=== PATIENT | male | born 1990 | race Hispanic/Latino ===

== ENCOUNTER 2018-01-30 18:18 | Inpatient (IN) | payer OTHER ==
[~2018-01-30 18:18] MED LIST: ISOVUE-370 76%-LOCM 1 ML ONE
[2018-01-30] MEDS ORDERED: methylPREDNISolone Sod Succ/PF 125 MG/2 ML VIAL ONE (18:48)
[2018-01-30 19:22] LABS: #Eosinphils 0.2 thou/uL (0.0-0.7); #Lymphocytes 4.2 thou/uL (1.20-3.40); #Monocytes 1.5 thou/uL (0.11-0.59); %Basophils 0.1 % (0.0-1.0); %Eosinophils 1.7 % (0.0-10.0); %Lymphocytes 30.4 % (21.0-51.0); %Monocytes 10.7 % (0.0-10.0); %Neutrophils 57.2 % (42.0-75.0); Hemoglobin 13.3 g/dL (14.0-18.0); Mean Corpuscular HGB CONC 34.1 g/dL (32.0-36.0); Mean Corpuscular Hemoglobin 29.4 pg (27.0-31.0); Mean Corpuscular Volume 86.1 fl (80.0-94.0); Mean Platelet Volume 10.8 fL (7.4-10.4); Platelet Count 150 thou/uL (130-400); RBC Distribution Width 14.1 % (11.5-14.5); Red Blood Cell (RBC) Count 4.51 mill/uL (4.70-6.10); White Blood Cell (WBC) Count 13.9 thou/uL (4.8-10.8)
[2018-01-30 19:25] LABS: CKMB 0.5 ng/mL (0-6.6); Troponin I Less than 0.010 ng/mL (< 0.028)
[2018-01-30 19:49] LABS: ALT (SGPT) 89 U/L (8-55); AST (SGOT) 63 U/L (5-34); Albumin 4.2 g/dL (3.5-5.0); Alkaline Phosphatase 143 U/L (40-150); Anion Gap 20 mmol/L (10-20); BUN (Urea Nitrogen) 32 mg/dL (8.9-20.6); Bilirubin, Total 0.4 mg/dL (0.2-1.2); CK (CPK) 35 U/L (30-200); Calc. Creatinine Clearance 0 mL/min (70-130); Calcium 10.1 mg/dL (7.8-10.44); Carbon Dioxide 20 mmol/L (22-29); Chloride 95 mmol/L (98-107); Estimated GFR-MDRD 51; Globulin 3.9 g/dL (2.4-3.5); Glucose 493 mg/dL (70-105); Potassium 4.5 mmol/L (3.5-5.1); Protein, Total 8.1 g/dL (6.0-8.3); Sodium 130 mmol/L (136-145)
--- NOTE | 2018-01-30 19:52 | RAD ---
SINGLE VIEW OF THE CHEST: 01/30/18 COMPARISON: 06/07/16 HISTORY: Dyspnea with shortness of breath and pneumonia. FINDINGS: Single view of the chest shows a normal sized cardiomediastinal silhouette. There is no evidence of c onsolidation, mass, or pleural effusion. The bones are unremarkable. IMPRESSION: No evidence of acute cardiopulmonary disease. POS: [facility]
--- NOTE | 2018-01-30 22:53 | CT ---
CTA OF THE CHEST WITH CONTRAST 01/30/18 COMPARISON: None. HISTORY: Shortness of breath for one week. TECHNIQUE: Multiple contiguous axial images were obtained in a CTA of the chest with contrast per pulmonary embo lism protocol. 3D oblique MIP reformats and direct coronal reformats were performed. FINDINGS: Evaluation of the pulmonary arteries is limited secondary to poor timing of the contrast bolus. No ob vious large filling defect is seen within the main pulmonary arteries. The heart is normal in size. N o hilar or mediastinal lymphadenopathy are seen. No pneumothorax or pleural effusion are seen. No focal infiltrates are seen in the lungs. No suspicio us pulmonary nodule is present. The osseous structures and visualized abdominal wall soft tissues are unremarkable. There is fatty in filtration of the liver. IMPRESSION: 1. No evidence of pulmonary thromboembolism. 2. Fatty liver. POS: [facility]
[2018-01-30] MEDS ORDERED: Insulin Regular 300 UNITS/3 ML VIAL ONE (23:16)
[2018-01-31] MEDS ORDERED: Insulin Regular 300 UNITS/3 ML VIAL ONE (01:53)
[2018-01-31] MEDS ORDERED: Ondansetron ODT 4 MG TAB SL PRN (03:37)
[2018-01-31] MEDS ORDERED: Ondansetron HCl/PF 4 MG/2 ML Vial IVP PRN ×2 (03:37→06:17)
[2018-01-31] MEDS ORDERED: Acetaminophen 325 MG TAB PO PRN (03:37)
[2018-01-31 04:19] VITALS: BMI 61.1
[2018-01-31 04:34] LABS: Anion Gap 16 mmol/L (10-20); BUN (Urea Nitrogen) 34 mg/dL (8.9-20.6); Calc. Creatinine Clearance 200 mL/min (70-130); Calcium 9.1 mg/dL (7.8-10.44); Carbon Dioxide 22 mmol/L (22-29); Chloride 98 mmol/L (98-107); Estimated GFR-MDRD 55; Potassium 4.6 mmol/L (3.5-5.1); Sodium 131 mmol/L (136-145)
[2018-01-31 04:41] LABS: Glucose 661 mg/dL (70-105)
[2018-01-31] MEDS ORDERED: HumaLOG 300 UNITS/3 ML VIAL SC SCH (05:15)
[2018-01-31] MEDS ORDERED: Dextrose 50% Abboject 50 ML SYRINGE SLOW IVP PRN (06:17)
[2018-01-31] MEDS ORDERED: Dextrose 5% in Water 1,000 ML IV PRN (06:17)
[2018-01-31] MEDS ORDERED: Acetaminophen 650 MG Suppository PR PRN (06:17)
[2018-01-31] MEDS ORDERED: Bisacodyl 5 MG TAB PO PRN (06:17)
--- NOTE | 2018-01-31 06:46 | HP ---
PRIMARY CARE PROVIDER: None. CHIEF COMPLAINT: Shortness of breath. HISTORY OF PRESENT ILLNESS: Mr. Underwood is a pleasant 27-year-old gentleman who was seen at [facility] on 01/31/2018. He reports that he has been feeling short of breath over the last 1-2 weeks. He denies any cough or sputum. He denies any nausea or vomiting. He denies any chest pain at this time, although he appear s to have told the emergency room physician that he had some chest pain. He reports that he has been unable to sleep. He also describes wheezing. In the emergency room, he received Solu-Medrol. He was found to have high blood glucose levels. The refore, he was referred for admission to control his hyperglycemia. While on the observation floor, his oxygen saturations dropped to 84% on room air. Therefore, he is being admitted as an inpatient t [facility]. REVIEW OF SYSTEMS: All other systems reviewed and found to be negative. PAST MEDICAL HISTORY: Significant for hypothyroidism, morbid obesity, asthma, mild mental retardatio n and hypertension. PAST SURGICAL HISTORY: Appendectomy. SOCIAL HISTORY: The patient drinks alcohol occasionally. He smokes 1-2 packs of cigarettes a day. He denies recreational drug use. FAMILY HISTORY: He reports cardiac disease in uncles and aunts. ALLERGIES: MUSCLE RELAXANT drug. CURRENT MEDICATIONS: Albuterol inhalations as needed, Tylenol #3 p.r.n., amlodipine 10 mg daily, frances apentin 100 mg 3 times a day, Humalog insulin 15 units 3 times a day, levothyroxine 125 mcg daily, me tformin 1000 mg 2 times a day, metoprolol tartrate 25 mg 2 times a day, and Lantus insulin 40 units s ubcutaneously daily. PHYSICAL EXAMINATION: GENERAL: On examination, Mr. Underwood is awake and alert, not in acute distress. He is morbidly obese , with BMI of greater than 61. VITAL SIGNS: Blood pressure is 150/78, pulse is 104, he is breathing at rate of 24 and saturating 84 % on room air and 92% on 3 liters of oxygen by nasal cannula. He is afebrile. EYES: No scleral icterus. No conjunctival pallor. ENT: Moist mucosal membranes, no oropharyngeal erythema or exudates. NECK: Supple, nontender, normal range of movement. Trachea is midline. RESPIRATORY: Accessory muscles of breathing are not active. Chest wall movements are symmetric bila terally. He has occasional expiratory lung wheeze. CARDIOVASCULAR: S1 and S2 are heard, regular and tachycardic. Peripheral pulses palpable. No peric ardial rub, no carotid bruit. ABDOMEN: Soft, distended, nontender. Bowel sounds are heard. NEUROLOGIC: Cranial nerves II-XII intact. Deep tendon reflexes are 2+. MUSCULOSKELETAL: Power is 5/5 in all 4 extremities. SKIN: Multiple tattoos present. LYMPHATIC: No cervical lymphadenopathy. PSYCHIATRIC: Normal mood, normal affect, patient is oriented to person and place, not to time. IMAGING DATA AND LABORATORY DATA: Mr. Underwood's labs and investigations were reviewed. I reviewed hi s electrocardiogram, which shows sinus tachycardia, no ST changes to suggest an acute coronary syndro me. I also reviewed his chest x-ray, which does not show any pulmonary infiltrates. He also had CT angiogram of the chest, which did not show any evidence of pulmonary thromboembolism. He has fatty l iver. He has leukocytosis with 13,900 white cells, of which 57% are neutrophils, normocytic anemia with hem oglobin 13.3, normal platelet count, decreased sodium of 131, normal potassium, normal anion gap, nor mal bicarbonate, elevated blood urea nitrogen of 34, elevated creatinine of 1.52 and elevated blood s ugars of 661. AST is elevated at 63, ALT is elevated at 89. Total bilirubin and alkaline phosphatas e are normal. Beta hydroxybutyrate level is normal. ASSESSMENT AND PLAN: Mr. Underwood is a pleasant 27-year-old gentleman who was seen at [facility] on 01/31/2018. His problem list includes: 1. Acute hypoxic respiratory failure: Mr. Underwood is being admitted to the hospital for acute hypoxi c respiratory failure, most likely secondary to asthma exacerbation, although he could very well have a hypercapnic component secondary to sleep disorder breathing. For now, I will continue him on ster oids and bronchodilators as needed. 2. Uncontrolled hyperglycemia: We will start him on Levemir insulin and home doses of insulins as w ell as an aggressive insulin sliding scale. 3. Hypertension: Monitor vital signs, titrate antihypertensives as needed. 4. Hypothyroidism: Continue Synthroid. LEVEL OF RISK: High. LEVEL OF COMPLEXITY: High.
[2018-01-31 07:56] LABS: Bilirubin Negative (Negative); Blood, Urine Negative (Negative); Clarity CLEAR (Clear); Glucose, Urine (Dipstick) >=1000 mg/dL (Negative); Leukocyte Negative (Negative); Nitrite Negative (Negative); Protein, Urine (Dipstick) Negative (Neg-Trace); Specific Gravity, Urine 1.024 (1.002-1.036); Urobilinogen 0.2 mg/dL (0.2-1.0)
[2018-01-31 07:58] LABS: Bacteria/HPF None Seen HPF (None Seen); Hyaline Casts/LPF 0-3 HYALINE CAST LPF (0-3 Hyaline); RBC/HPF None Seen HPF (0-3); Squamous Epithelial 0-3 HPF (0-3); WBC/HPF None Seen HPF (0-3)
[2018-01-31] MEDS: HumaLOG 300 UNITS/3 ML VIAL SC SCH ×3 (09:22→17:46)
[2018-01-31] MEDS: Enoxaparin Sodium 40 MG/0.4 ML SYRINGE SC SCH (09:23)
[2018-01-31] MEDS: Insulin Glargine 40 UNITS in Pre-Filled Syringe 1 EACH SC SCH (09:23)
[2018-01-31] MEDS: predniSONE 50 MG TAB PO SCH (09:23)
[2018-01-31] MEDS: metFORMIN 500 MG TAB PO SCH ×2 (09:24→20:16)
[2018-01-31] MEDS: Amlodipine 10 MG TAB PO SCH (09:24)
[2018-01-31] MEDS: Levothyroxine Sodium 125 MCG TAB PO SCH (09:25)
[2018-01-31] MEDS: Lisinopril 10 MG TAB PO SCH (09:25)
[2018-01-31] MEDS: Metoprolol Tartrate 25 MG TAB PO SCH ×2 (09:25→20:16)
[2018-01-31] MEDS: Gabapentin 100 MG CAP PO SCH ×3 (09:25→20:16)
[2018-01-31] MEDS: Sodium Chloride 0.9% 1,000 ML IV SCH ×2 (10:33→14:56)
[2018-01-31] MEDS: Nicotine 21 MG PATCH TD SCH ×2 (10:34→12:28)
[2018-01-31] MEDS: Acetaminophen 325 MG TAB PO PRN ×2 (15:11→20:19)
[2018-01-31] MEDS: Lorazepam 1 MG TAB PO PRN (17:46)
[2018-01-31] MEDS: Insulin Regular 300 UNITS/3 ML VIAL SC PRN ×2 (17:48→21:12)
--- NOTE | 2018-01-31 18:13 | PDOC.EVN ---
Event Note - Event Note Event Note: Up and down day with the patient. He has refused interventions intermittently and had become agitated and angry at times. This evening he is behaving more pleasantly. He had refused an IV initially. We did finally get one in, but then he pulled it out when he got upset. Says his breathing is still not good, but he looks very comfortable. No significant wheezing heard, but compromised by habitus. Has not received any nebs today. Will change them to scheduled. Blood sugars have improved through the day.
[2018-01-31] MEDS ORDERED: Insulin Regular 300 UNITS/3 ML VIAL SC PRN (20:33)
[2018-01-31] MEDS ORDERED: Lorazepam 1 MG TAB PO SCH (22:15)
[2018-02-01] MEDS: Levothyroxine Sodium 125 MCG TAB PO SCH (05:10)
[2018-02-01] MEDS: Acetaminophen 325 MG TAB PO PRN ×2 (05:11→08:55)
[2018-02-01] MEDS: Lorazepam 1 MG TAB PO PRN (05:12)
[2018-02-01 05:33] LABS: Anion Gap 14 mmol/L (10-20); BUN (Urea Nitrogen) 27 mg/dL (8.9-20.6); Calc. Creatinine Clearance 286 mL/min (70-130); Calcium 9.5 mg/dL (7.8-10.44); Carbon Dioxide 27 mmol/L (22-29); Chloride 96 mmol/L (98-107); Estimated GFR-MDRD 84; Glucose 307 mg/dL (70-105); Potassium 4.1 mmol/L (3.5-5.1); Sodium 133 mmol/L (136-145)
[2018-02-01 05:43] LABS: #Eosinphils 0.2 thou/uL (0.0-0.7); #Lymphocytes 4.6 thou/uL (1.20-3.40); #Monocytes 1.3 thou/uL (0.11-0.59); %Eosinophils 1.1 % (0.0-10.0); %Lymphocytes 30.5 % (21.0-51.0); %Monocytes 8.8 % (0.0-10.0); %Neutrophils 59.6 % (42.0-75.0); Hemoglobin 12.9 g/dL (14.0-18.0); Mean Corpuscular HGB CONC 33.6 g/dL (32.0-36.0); Mean Corpuscular Hemoglobin 29.2 pg (27.0-31.0); Mean Corpuscular Volume 86.9 fl (80.0-94.0); Mean Platelet Volume 10.9 fL (7.4-10.4); Platelet Count 135 thou/uL (130-400); RBC Distribution Width 14.1 % (11.5-14.5); Red Blood Cell (RBC) Count 4.44 mill/uL (4.70-6.10); White Blood Cell (WBC) Count 15.2 thou/uL (4.8-10.8)
[2018-02-01 07:54] VITALS: BP 171/85; TEMP 97.7
[2018-02-01] MEDS: Gabapentin 100 MG CAP PO SCH ×2 (08:55→16:28)
[2018-02-01] MEDS: Metoprolol Tartrate 25 MG TAB PO SCH (08:55)
[2018-02-01] MEDS: Lisinopril 10 MG TAB PO SCH (08:55)
[2018-02-01] MEDS: predniSONE 50 MG TAB PO SCH (08:55)
[2018-02-01] MEDS: Amlodipine 10 MG TAB PO SCH (08:55)
[2018-02-01] MEDS: metFORMIN 500 MG TAB PO SCH (08:55)
[2018-02-01] MEDS: Insulin Glargine 40 UNITS in Pre-Filled Syringe 1 EACH SC SCH (08:56)
[2018-02-01] MEDS: HumaLOG 300 UNITS/3 ML VIAL SC SCH ×2 (08:56→13:17)
[2018-02-01] MEDS: Insulin Regular 300 UNITS/3 ML VIAL SC PRN ×2 (08:57→13:16)
[2018-02-01] MEDS ORDERED: Prevnar 13-Val Conj/PF 0.5 ML SYRINGE IM ONE (09:00)
[2018-02-01] MEDS: Enoxaparin Sodium 40 MG/0.4 ML SYRINGE SC SCH (09:13)
--- NOTE | 2018-02-01 09:54 | PDOC.PN ---
- Subjective Encounter Start Date: 02/01/18 Encounter Start Time: 09:50 The patient reports his breathing is "terrible...I'm trying to quit smoking." He says he has gone downstairs twice to smoke since he has been here. He requests something for pain at discharge. He also says he had no place to go and that he is essentially homeless at this point. He requests oxygen and a prescription for a new neb machine. He orders guest trays and becomes angry with nursing when they try to intervene based on his terrible blood sugars and dietary restriction. He has intermittently refused treatment and has acted out to the point security has been involved. He removes his oxygen frequently. - Objective Vital Signs & Weight: Vital Signs (12 hours) Temp Pulse Resp BP Pulse Ox 02/01/18 07:45 97.7 F 90 18 171/85 H 92 L 02/01/18 06:44 80 16 95 02/01/18 04:00 98 F 88 22 H 135/74 94 L 02/01/18 01:54 98 24 H Weight Weight 425 lb 5 oz I&O: 01/31/18 02/01/18 02/02/18 06:59 06:59 06:59 Intake Total 5000 Output Total 5075 Balance -75 Result Diagrams: 02/01/18 04:40 02/01/18 04:40 Additional Labs: Accuchecks 02/01/18 02/01/18 01/31/18 06:00 02:19 20:22 POC Glucose 291 H 352 H Greater than 550 H* 01/31/18 01/31/18 17:27 12:34 POC Glucose 443 H 358 H Phys Exam - Physical Examination Constitutional: NAD Speaks in full sentences comfortably. HEENT: PERRLA, moist MMs, oral pharynx no lesions Neck: no JVD Some wheezing at the left base. Compromised exam due to obesity. Cardiovascular: RRR, no significant murmur Gastrointestinal: soft, non-tender, no distention Musculoskeletal: no edema Neurological: non-focal Deviation from normal: Present affect is basically normal. Labile at times. Dx/Plan (1) Acute respiratory failure with hypoxia Code(s): J96.01 - ACUTE RESPIRATORY FAILURE WITH HYPOXIA Status: Acute Plan: He is still hypoxic on room air, but looks extremely comfortable with that. Suspect he has a major component of hypoventilation of obesity. Continue oxygen and nebs. May need outpatient oxygen. (2) Asthma attack Code(s): J45.901 - UNSPECIFIED ASTHMA WITH (ACUTE) EXACERBATION Status: Acute Plan: Continue the nebs and oxygen. Stopping steroids secondary to severe hyperglycemia. Still smoking. May need better controller medication in the long-term, but he needs follow up care. (3) Diabetes Code(s): E11.9 - TYPE 2 DIABETES MELLITUS WITHOUT COMPLICATIONS Status: Acute Qualifiers: Diabetes mellitus type: type 2 Diabetes mellitus correction insulin use: with superintendent [employer] use Plan: His blood sugars are extremely high at times. Better with the SSI. He is non- compliant with diet. Stopping steroids. Continue SSI. (4) Hypertension Code(s): I10 - ESSENTIAL (PRIMARY) HYPERTENSION Status: Acute (5) Morbid obesity with BMI of 60.0-69.9, adult Code(s): E66.01 - MORBID (SEVERE) OBESITY DUE TO EXCESS CALORIES; Z68.44 - BODY MASS INDEX (BMI) 60.0-69.9, ADULT Status: Acute Plan: Life threatening obesity. Non-compliance with diet. - Plan * Stopping steroids. * Continue SSI. * Case Management for assisting with housing. * May need outpatient oxygen.
[2018-02-01] MEDS: Nicotine 21 MG PATCH TD SCH ×2 (10:16→10:17)
[2018-02-01 10:27] LABS: Actual Bicarbonate (HCO3a) 25.2 mEq/L (22-26); Base Excess (BEa) 0.5 mEq/L (0 (+/-) 2.5); CO2 Tension 40.9 mmHg (35.0-45.0); Hematocrit-ABG 41.7 % (42.0-52.0); O2 Tension (PaO2) 85.8 mmHg (80.0-100.0); pH, Arterial 7.41 (7.35-7.45)
[2018-02-01 10:28] LABS: ALV-art Gradient 11.965 (0-20); Calcium, Ionized 1.2 mmol/L (1.12-1.30); Puncture Site LRA
--- NOTE | 2018-02-01 11:48 | EKG ---
Test Reason : Blood Pressure : / mmHG Vent. Rate : 105 BPM Atrial Rate : 105 BPM P-R Int : 128 ms QRS Dur : 098 ms QT Int : 338 ms P-R-T Axes : 059 076 026 degrees QTc Int : 446 ms Sinus tachycardia Otherwise normal ECG Confirmed by AUDRA BOB ([id number]), news videotape editor MICHAEL PAULSON ([id number] on 02/01/2018 11:47:19 AM Referred By: Confirmed By:AUDRA BOB
--- NOTE | 2018-02-02 02:49 | DIS ---
DATE OF ADMISSION: 01/31/2018 DATE OF DISCHARGE: 02/01/2018 DISCHARGE DIAGNOSES: 1. Acute hypoxic respiratory failure. 2. Uncontrolled hyperglycemia. 3. Asthma. 4. Hypertension. 5. Hypothyroidism. 6. Morbid obesity. 7. Tobacco abuse. HISTORY: This patient is a 27-year-old male with a body mass index of 60, who continues to smoke in spite of his asthma. The patient presented ultimately via the emergency departments, he was reporting shortness of breath for approximately 2 weeks prior. In the emergency department, the patient was thought to have some asthma exacerbation, was given a dose of Solu-Medrol and was also found to have significantly elevated blood sugars and O2 sat of 84% and therefore was felt to be appropriate for admission for continued treatment of asthma and hyperglycemia. HOSPITAL COURSE: The patient was maintained on nebulizer treatments and prednisone. His blood sugars remained very high and required multiple doses of sliding scale insulin. Unfortunately, the patient was extraordinarily noncompliance. He was ordering 3 guest trays with his meals. He also went outside in the wheelchair to smoke on a couple of different occasions. The patient frequently refused interventions and became belligerence and threatening to nursing staff. Security had to be called on multiple occasions and ultimately the patient started throwing things in his room and was threatening to the point that the police department had to be asked to come and intervene as well. The patient initially reported that he had checked out of his "apartment" but as it turns out, he had been kicked out of the [place]. He was evaluated by case management and discharge planning and the patient had essentially exhausted most of the options available to him to get assistance with housing and now was determined that the patient had adequate resources in order to get himself to a hotel if need be. Ultimately, the patient was trying to get another guest tray, but did not have rodriguez and was asking to use a credit or debit card. He was told that would not be possible in his room that he would have to go downstairs in order to do that and the patient became angry and was throwing pitchers of water in his room. When ultimately confronted, he stated that he would leave this place against medical advice using a number of choice expletives. Subsequently, the patient is discharged against medical advice by his choice. I will give him the prescription for the nebulizer machine. He stated that he had the medication. MTDD
== END 2018-02-01 16:28 | disposition left against medical advice (07) | DRG 189 ==
LOC: ERS 18:18 → OBSVTOIN 01-31 03:23 → 2SW 01-31 03:23 → 2NO 01-31 07:27
PROVIDERS: ADMIT Internal Medicine; ATTEND Internal Medicine
DX: J96.01 Acute respiratory failure with hypoxia (principal); J44.1 Chronic obstructive pulmonary disease with (acute) exacerbation; Z68.44 Body mass index [BMI] 60.0-69.9, adult; F17.210 Nicotine dependence, cigarettes, uncomplicated; I10 Essential (primary) hypertension; E03.9 Hypothyroidism, unspecified; K76.0 Fatty (change of) liver, not elsewhere classified; E66.01 Morbid (severe) obesity due to excess calories; F70 Mild intellectual disabilities; R73.9 Hyperglycemia, unspecified
CPT/HCPCS: 36415; 36416; 71045; 71275; 80048; 80053; 81001; 82010; 82550; 82553; 82805; 84484; 85025; 93005; 94640; 96361; 96372; 96374; A4216; J1650; J1815; J2930; J7620

== ENCOUNTER 2019-01-09 17:44 | Emergency (ER) | payer OTHER ==
[2019-01-09] MEDS ORDERED: Ketorolac Tromethamine 30 MG/ML VIAL ONE (18:30)
[2019-01-09 18:34] LABS: #Basophils 0.1 thou/uL (0.0-0.2); #Eosinphils 0.3 thou/uL (0.0-0.7); #Lymphocytes 2.5 thou/uL (1.20-3.40); #Monocytes 0.7 thou/uL (0.11-0.59); #Neutrophils 5.8 thou/uL (1.40-6.50); %Eosinophils 3.1 % (0.0-10.0); %Lymphocytes 26.5 % (21.0-51.0); %Monocytes 7.1 % (0.0-10.0); %Neutrophils 62.2 % (42.0-75.0); Hemoglobin 10.8 g/dL (14.0-18.0); Mean Corpuscular HGB CONC 33.5 g/dL (32.0-36.0); Mean Corpuscular Hemoglobin 29.8 pg (27.0-31.0); Mean Corpuscular Volume 89.1 fL (78.0-98.0); Red Blood Cell (RBC) Count 3.61 mill/uL (4.70-6.10); White Blood Cell (WBC) Count 9.3 thou/uL (4.8-10.8)
--- NOTE | 2019-01-09 18:37 | RAD ---
XR Chest 1 View Portable History: [Dyspnea] Comparison: Radiograph 2018 Findings: Lungs are clear. No pneumothorax or effusion. Cardiac silhouette and mediastinal contours a re within normal limits. Impression: No acute intrathoracic abnormality.
[2019-01-09 18:53] LABS: Bilirubin Negative (Negative); Blood, Urine Negative (Negative); Clarity CLOUDY (Clear); Glucose, Urine (Dipstick) 250 mg/dL (Negative); Leukocyte Small (Negative); Nitrite Negative (Negative); Protein, Urine (Dipstick) Negative (Neg-Trace); Specific Gravity, Urine 1.017 (1.002-1.036); Urobilinogen 0.2 mg/dL (0.2-1.0)
[2019-01-09 18:56] LABS: Bacteria/HPF None Seen HPF (None Seen); Hyaline Casts/LPF 0-3 HYALINE CAST LPF (0-3 Hyaline); Pathc Cast-AUWi Flag 0.95 (0-2.49)
[2019-01-09 18:59] LABS: Large Platelets SLIGHT; MDiff Complete? YES; Mean Platelet Volume 10.8 fL (7.4-10.4); Platelet Count 104 thou/uL (130-400); Platelet Morphology Comment Appears Decreased
[2019-01-09 19:01] LABS: Yeast-AUWi Flag 80.9 (0-25.0)
[2019-01-09 19:02] LABS: ALT (SGPT) 22 U/L (8-55); AST (SGOT) 15 U/L (5-34); Albumin 3.6 g/dL (3.5-5.0); Alkaline Phosphatase 104 U/L (40-150); Anion Gap 11 mmol/L (10-20); BUN (Urea Nitrogen) 16 mg/dL (8.9-20.6); Bilirubin, Total 0.2 mg/dL (0.2-1.2); Calc. Creatinine Clearance 0 mL/min (70-130); Calcium 8.8 mg/dL (7.8-10.44); Carbon Dioxide 28 mmol/L (22-29); Chloride 101 mmol/L (98-107); Estimated GFR-MDRD 76; Globulin 2.8 g/dL (2.4-3.5); Glucose 304 mg/dL (70-105); Lipase 35 U/L (8-78); Potassium 4.4 mmol/L (3.5-5.1); Protein, Total 6.4 g/dL (6.0-8.3); Sodium 136 mmol/L (136-145)
[2019-01-09 19:13] LABS: RBC/HPF None Seen HPF (0-3)
[2019-01-09 19:14] LABS: Yeast-All Forms None Seen HPF (None Seen)
== END 2019-01-09 20:00 | disposition home or self-care (01) ==
LOC: ERS 17:44
DX: J20.9 Acute bronchitis, unspecified (principal); E03.9 Hypothyroidism, unspecified; J45.909 Unspecified asthma, uncomplicated; I11.0 Hypertensive heart disease with heart failure; I50.9 Heart failure, unspecified; E11.9 Type 2 diabetes mellitus without complications; F17.210 Nicotine dependence, cigarettes, uncomplicated; Z79.891 Long term (current) use of opiate analgesic; Z79.4 Long term (current) use of insulin; Z79.899 Other long term (current) drug therapy
CPT/HCPCS: 36415; 71045; 80053; 81003; 81015; 83690; 84484; 85025; 93005; 94640; 96374; J1885; J7620

== ENCOUNTER 2019-01-23 17:53 | Emergency (ER) | payer OTHER ==
[2019-01-23 18:43] LABS: #Eosinphils 0.2 thou/uL (0.0-0.7); #Lymphocytes 2.5 thou/uL (1.20-3.40); #Monocytes 0.8 thou/uL (0.11-0.59); %Basophils 0.4 % (0.0-1.0); %Eosinophils 2.2 % (0.0-10.0); %Lymphocytes 23.5 % (21.0-51.0); %Monocytes 7.5 % (0.0-10.0); %Neutrophils 66.4 % (42.0-75.0); Mean Corpuscular HGB CONC 33.2 g/dL (32.0-36.0); Mean Corpuscular Hemoglobin 29.7 pg (27.0-31.0); Mean Corpuscular Volume 89.4 fL (78.0-98.0); Mean Platelet Volume 10.8 fL (7.4-10.4); Platelet Count 115 thou/uL (130-400); RBC Distribution Width 14.2 % (11.5-14.5); Red Blood Cell (RBC) Count 3.72 mill/uL (4.70-6.10); White Blood Cell (WBC) Count 10.5 thou/uL (4.8-10.8)
--- NOTE | 2019-01-23 18:52 | RAD ---
RADIOGRAPH CHEST 1 VIEW: DATE: 01/23/2019 TIME: 6:30 PM HISTORY: 20-year-old male with dyspnea and diagnosis of pneumonia. COMPARISON: 01/19/2019 FINDINGS: Image quality is very poor on the current study. There appears to be a small new focal infiltrate at right lower lung zone. No margaret pulmonary edema. IMPRESSION: Very poor image quality. Apparent right lower lung zone infiltrate.
[2019-01-23 19:02] LABS: ALT (SGPT) 20 U/L (8-55); AST (SGOT) 14 U/L (5-34); Acetaminophen Less than 6.0 mcg/mL (10.0-30.0); Albumin 3.7 g/dL (3.5-5.0); Alcohol Less than 10 mg/dL (Less than 10); Alkaline Phosphatase 91 U/L (40-150); Anion Gap 13 mmol/L (10-20); BUN (Urea Nitrogen) 22 mg/dL (8.9-20.6); Bilirubin, Total 0.3 mg/dL (0.2-1.2); CK (CPK) 110 U/L (30-200); Calc. Creatinine Clearance 0 mL/min (70-130); Calcium 9.7 mg/dL (7.8-10.44); Carbon Dioxide 25 mmol/L (22-29); Chloride 107 mmol/L (98-107); Estimated GFR-MDRD 50; Globulin 3.4 g/dL (2.4-3.5); Potassium 4.8 mmol/L (3.5-5.1); Protein, Total 7.1 g/dL (6.0-8.3); Salicylate Less than 8.0 mg/dL (15.0-30.0); Sodium 140 mmol/L (136-145)
[2019-01-23 19:14] LABS: Glucose 57 mg/dL (70-105)
[2019-01-23] MEDS ORDERED: Azithromycin 250 MG TAB ONE ×2 (20:36→20:52)
[2019-01-23 21:40] LABS: Bilirubin Small (Negative); Blood, Urine Negative (Negative); Clarity CLEAR (Clear); Glucose, Urine (Dipstick) Negative (Negative); Leukocyte Trace (Negative); Nitrite Negative (Negative); Protein, Urine (Dipstick) Trace mg/dL (Neg-Trace); Specific Gravity, Urine 1.025 (1.002-1.036); Urobilinogen 0.2 mg/dL (0.2-1.0)
[2019-01-23 21:41] LABS: Bacteria/HPF None Seen HPF (None Seen)
[2019-01-23 21:44] LABS: Pathc Cast-AUWi Flag 7.88 (0-2.49)
[2019-01-23 21:52] LABS: RBC/HPF 0-3 HPF (0-3); Yeast-All Forms None Seen HPF (None Seen)
[2019-01-23 22:11] LABS: Medtox Reader # READER 1; Opiate Screen Detected (NotDetected)
[2019-01-23 22:12] LABS: Amphetamine Not Detected (NotDetected); Barbiturates Screen Not Detected (NotDetected); Benzodiazepine Screen Not Detected (NotDetected); Cocaine Metabolite Screen Not Detected (NotDetected); Medtox Control Line Valid? VALID (VALID); Methadone Not Detected (NotDetected); Methamphetamine Not Detected (NotDetected); Oxycodone Screen Not Detected (NotDetected); Phencyclidine (PCP) Not Detected (NotDetected); THC/Cannabinoid Screen Not Detected (NotDetected); Tricyclic Screen Not Detected (NotDetected)
== END 2019-01-24 01:03 | disposition home or self-care (01) ==
LOC: ERS 17:53
DX: J18.1 Lobar pneumonia, unspecified organism (principal); R45.851 Suicidal ideations; E11.9 Type 2 diabetes mellitus without complications; E78.5 Hyperlipidemia, unspecified; E03.9 Hypothyroidism, unspecified; I11.0 Hypertensive heart disease with heart failure; I50.9 Heart failure, unspecified; J45.909 Unspecified asthma, uncomplicated; F41.9 Anxiety disorder, unspecified; F31.9 Bipolar disorder, unspecified; F20.9 Schizophrenia, unspecified; F17.210 Nicotine dependence, cigarettes, uncomplicated; Z79.899 Other long term (current) drug therapy; Z79.4 Long term (current) use of insulin
CPT/HCPCS: 36415; 36416; 71045; 80053; 80306; 80307; 81001; 82550; 84443; 84484; 85025; 85379; 93005

== ENCOUNTER 2019-02-08 21:15 | Emergency (ER) | payer OTHER, SELFPAY ==
--- NOTE | 2019-02-08 22:38 | RAD ---
RADIOGRAPH CHEST 1 VIEW: DATE: 02/08/2019 HISTORY: 28-year-old male with chest pain". Exhaustion" FINDINGS: The evaluation is limited because of large body habitus. There is no evidence of no airspace densitie s, pulmonary edema, pneumothorax, or cardiomegaly. The lateral costophrenic angles are sharp. IMPRESSION: No acute cardiopulmonary findings.
[2019-02-08 23:00] LABS: Bilirubin Negative (Negative); Blood, Urine Negative (Negative); Clarity CLOUDY (Clear); Glucose, Urine (Dipstick) Negative (Negative); Leukocyte Negative (Negative); Nitrite Negative (Negative); Protein, Urine (Dipstick) Negative (Neg-Trace); Specific Gravity, Urine 1.016 (1.002-1.036); Urobilinogen 0.2 mg/dL (0.2-1.0); pH, Urine 5.5 (5.0-9.0)
[2019-02-08 23:15] LABS: ALT (SGPT) 24 U/L (8-55); AST (SGOT) 21 U/L (5-34); Albumin 3.9 g/dL (3.5-5.0); Alkaline Phosphatase 84 U/L (40-150); Anion Gap 16 mmol/L (10-20); BUN (Urea Nitrogen) 24 mg/dL (8.9-20.6); Bilirubin, Total 0.3 mg/dL (0.2-1.2); Calc. Creatinine Clearance 0 mL/min (70-130); Calcium 9.7 mg/dL (7.8-10.44); Carbon Dioxide 23 mmol/L (22-29); Chloride 104 mmol/L (98-107); Estimated GFR-MDRD 60; Globulin 3.6 g/dL (2.4-3.5); Glucose 136 mg/dL (70-105); Potassium 4.2 mmol/L (3.5-5.1); Protein, Total 7.5 g/dL (6.0-8.3); Sodium 139 mmol/L (136-145)
[2019-02-08 23:17] LABS: #Basophils 0.1 thou/uL (0.0-0.2); #Eosinphils 0.3 thou/uL (0.0-0.7); #Lymphocytes 3.1 thou/uL (1.20-3.40); #Monocytes 0.8 thou/uL (0.11-0.59); #Neutrophils 6.4 thou/uL (1.40-6.50); %Basophils 0.6 % (0.0-1.0); %Eosinophils 2.7 % (0.0-10.0); %Lymphocytes 29.1 % (21.0-51.0); %Monocytes 7.3 % (0.0-10.0); %Neutrophils 60.3 % (42.0-75.0); Hemoglobin 11.4 g/dL (14.0-18.0); Mean Corpuscular Hemoglobin 30.3 pg (27.0-31.0); Mean Corpuscular Volume 89.3 fL (78.0-98.0); Mean Platelet Volume 11.2 fL (7.4-10.4); Platelet Count 108 thou/uL (130-400); RBC Distribution Width 14.3 % (11.5-14.5); Red Blood Cell (RBC) Count 3.77 mill/uL (4.70-6.10); White Blood Cell (WBC) Count 10.6 thou/uL (4.8-10.8)
[2019-02-08 23:18] LABS: Platelet Morphology Comment Appears Decreased
[2019-02-08 23:24] LABS: Acetaminophen Less than 6.0 mcg/mL (10.0-30.0); Alcohol Less than 10 mg/dL (Less than 10); Salicylate Less than 8.0 mg/dL (15.0-30.0)
--- NOTE | 2019-02-08 23:58 | ULT ---
ULTRASOUND DOPPLER DUPLEX VENOUS BILATERAL LOWER EXTREMITIES: DATE: 02/08/2019 HISTORY: Bilateral lower extremity edema in 28-year-old male. TECHNIQUE: Grayscale, color-flow, and spectral analysis, of major veins of bilateral lower extremities. FINDINGS: Because of body habitus, there is limited visualization of the veins, especially in the calves. There is demonstration of blood flow with normal compressibility, of the bilateral common femoral, profunda femoral, greater saphenous, femoral, and popliteal, veins. The posterior tibial veins are no t visualized. IMPRESSION: 1. Limited study. Bilateral posterior tibial veins of distal calves not visualized. 2. No compelling evidence of deep venous thrombosis of bilateral lower extremities.
[2019-02-09] MEDS ORDERED: Acetaminophen 500 MG TAB ONE (00:29)
== END 2019-02-09 01:50 | disposition home or self-care (01) ==
LOC: ERS 21:15
DX: T67.5XXA Heat exhaustion, unspecified, initial encounter (principal); E10.9 Type 1 diabetes mellitus without complications; E78.5 Hyperlipidemia, unspecified; I10 Essential (primary) hypertension; E66.9 Obesity, unspecified; F31.9 Bipolar disorder, unspecified; F41.9 Anxiety disorder, unspecified; F17.210 Nicotine dependence, cigarettes, uncomplicated; Z79.4 Long term (current) use of insulin; Z79.899 Other long term (current) drug therapy; Z79.51 Long term (current) use of inhaled steroids
CPT/HCPCS: 36416; 71045; 80053; 80307; 81003; 83880; 84484; 85025; 85379; 87086; 93005; 93970; 96360

== ENCOUNTER 2019-02-13 10:25 | Emergency (ER) | payer SELFPAY ==
[2019-02-13] MEDS ORDERED: Ondansetron ODT 8 MG TAB ONE (10:46)
[2019-02-13 11:08] LABS: Bilirubin Negative (Negative); Blood, Urine Negative (Negative); Clarity Clear (Clear); Glucose, Urine (Dipstick) Negative (Negative); Leukocyte Negative (Negative); Nitrite Negative (Negative); Protein, Urine (Dipstick) Negative (Neg-Trace); Urobilinogen 0.2 mg/dL (0.2-1.0)
[2019-02-13 11:18] LABS: #Basophils 0.1 thou/uL (0.0-0.2); #Eosinphils 0.2 thou/uL (0.0-0.7); #Lymphocytes 2.4 thou/uL (1.20-3.40); #Monocytes 0.7 thou/uL (0.11-0.59); #Neutrophils 6.5 thou/uL (1.40-6.50); %Basophils 0.7 % (0.0-1.0); %Eosinophils 2.1 % (0.0-10.0); %Lymphocytes 24.3 % (21.0-51.0); %Monocytes 7.4 % (0.0-10.0); %Neutrophils 65.5 % (42.0-75.0); Hemoglobin 12.3 g/dL (14.0-18.0); Mean Corpuscular HGB CONC 33.9 g/dL (32.0-36.0); Mean Corpuscular Hemoglobin 29.8 pg (27.0-31.0); Mean Corpuscular Volume 87.8 fL (78.0-98.0); Mean Platelet Volume 10.9 fL (7.4-10.4); Platelet Count 118 thou/uL (130-400); RBC Distribution Width 14.4 % (11.5-14.5); Red Blood Cell (RBC) Count 4.12 mill/uL (4.70-6.10); White Blood Cell (WBC) Count 9.9 thou/uL (4.8-10.8)
--- NOTE | 2019-02-13 11:25 | RAD ---
LEFT KNEE 4 VIEWS: Date: 02/13/19 HISTORY: Left knee pain. FINDINGS: Degenerative and osteoarthrosis changes, particularly medial compartment. No fracture, dislocation, o r other acute process. IMPRESSION: Mild right knee degenerative changes, particularly of the medial compartment. No fracture or dislocat ion, or other acute process. POS: [facility]
[2019-02-13 11:38] LABS: ALT (SGPT) 21 U/L (8-55); AST (SGOT) 20 U/L (5-34); Albumin 4.3 g/dL (3.5-5.0); Alkaline Phosphatase 83 U/L (40-150); Anion Gap 16 mmol/L (10-20); BUN (Urea Nitrogen) 27 mg/dL (8.9-20.6); Bilirubin, Total 0.4 mg/dL (0.2-1.2); Calc. Creatinine Clearance 0 mL/min (70-130); Carbon Dioxide 22 mmol/L (22-29); Chloride 101 mmol/L (98-107); Estimated GFR-MDRD 61; Globulin 3.8 g/dL (2.4-3.5); Glucose 75 mg/dL (70-105); Lipase 23 U/L (8-78); Potassium 4.7 mmol/L (3.5-5.1); Protein, Total 8.1 g/dL (6.0-8.3); Sodium 134 mmol/L (136-145)
== END 2019-02-13 12:00 | disposition home or self-care (01) ==
LOC: ERS 10:25
DX: S83.92XA Sprain of unspecified site of left knee, initial encounter (principal); R10.9 Unspecified abdominal pain; K21.9 Gastro-esophageal reflux disease without esophagitis; E66.9 Obesity, unspecified; E10.9 Type 1 diabetes mellitus without complications; I10 Essential (primary) hypertension; E78.5 Hyperlipidemia, unspecified; F41.9 Anxiety disorder, unspecified; F31.9 Bipolar disorder, unspecified; F20.9 Schizophrenia, unspecified; F17.210 Nicotine dependence, cigarettes, uncomplicated; W18.42XA Slipping, tripping and stumbling without falling due to stepping into hole or opening, initial encounter; Z79.899 Other long term (current) drug therapy
CPT/HCPCS: 36415; 80053; 81003; 83690; 85025

== ENCOUNTER 2019-02-22 14:49 | Emergency (ER) | payer OTHER | END 2019-02-22 17:08 | disposition home or self-care (01) | LOC: ERS 14:49 | DX: E11.649 Type 2 diabetes mellitus with hypoglycemia without coma (principal); E78.5 Hyperlipidemia, unspecified; I10 Essential (primary) hypertension; E66.9 Obesity, unspecified; F31.9 Bipolar disorder, unspecified; F41.9 Anxiety disorder, unspecified; F20.9 Schizophrenia, unspecified; F17.210 Nicotine dependence, cigarettes, uncomplicated; Z79.899 Other long term (current) drug therapy; Z79.4 Long term (current) use of insulin; Z79.84 Long term (current) use of oral hypoglycemic drugs | CPT/HCPCS: 36416; 99285 ==

== ENCOUNTER 2019-02-28 21:31 | Emergency (ER) | payer OTHER ==
--- NOTE | 2019-02-28 22:02 | RAD ---
Exam: Chest one view: HISTORY: Left-sided chest pain COMPARISON: 02/24/2019. FINDINGS: Heart size is within normal limits. The lungs are clear. No pneumothorax, pleural effusion, pneumonia , or other acute process. There appears to be some right rib deformities possibly related to healed fractures. There is motion artifact in this region which lowers the sensitivity of the study. IMPRESSION: No significant acute intrathoracic disease.
[2019-02-28 22:16] LABS: #Basophils 0.1 thou/uL (0.0-0.2); #Eosinphils 0.2 thou/uL (0.0-0.7); #Lymphocytes 2.8 thou/uL (1.20-3.40); #Monocytes 0.7 thou/uL (0.11-0.59); #Neutrophils 7.3 thou/uL (1.40-6.50); %Basophils 0.8 % (0.0-1.0); %Eosinophils 1.7 % (0.0-10.0); %Lymphocytes 25.2 % (21.0-51.0); %Monocytes 5.9 % (0.0-10.0); %Neutrophils 66.5 % (42.0-75.0); Hemoglobin 11.8 g/dL (14.0-18.0); Mean Corpuscular HGB CONC 33.5 g/dL (32.0-36.0); Mean Corpuscular Hemoglobin 29.8 pg (27.0-31.0); Mean Corpuscular Volume 89.1 fL (78.0-98.0); Mean Platelet Volume 11.6 fL (7.4-10.4); Platelet Count 98 thou/uL (130-400); RBC Distribution Width 13.7 % (11.5-14.5); Red Blood Cell (RBC) Count 3.96 mill/uL (4.70-6.10)
[2019-02-28 22:38] LABS: ALT (SGPT) 17 U/L (8-55); AST (SGOT) 14 U/L (5-34); Albumin 4.2 g/dL (3.5-5.0); Alkaline Phosphatase 89 U/L (40-150); Anion Gap 13 mmol/L (10-20); BUN (Urea Nitrogen) 22 mg/dL (8.9-20.6); Bilirubin, Total 0.4 mg/dL (0.2-1.2); CK (CPK) 87 U/L (30-200); Calc. Creatinine Clearance 0 mL/min (70-130); Calcium 9.5 mg/dL (7.8-10.44); Carbon Dioxide 25 mmol/L (22-29); Chloride 102 mmol/L (98-107); Estimated GFR-MDRD 42; Globulin 3.6 g/dL (2.4-3.5); Glucose 104 mg/dL (70-105); Lipase 32 U/L (8-78); Potassium 4.1 mmol/L (3.5-5.1); Protein, Total 7.8 g/dL (6.0-8.3); Sodium 136 mmol/L (136-145)
== END 2019-03-01 00:17 | disposition home or self-care (01) ==
LOC: ERS 21:31
DX: R07.9 Chest pain, unspecified (principal); L30.4 Erythema intertrigo; E11.9 Type 2 diabetes mellitus without complications; E10.9 Type 1 diabetes mellitus without complications; E78.5 Hyperlipidemia, unspecified; I10 Essential (primary) hypertension; E66.9 Obesity, unspecified; F31.9 Bipolar disorder, unspecified; F41.9 Anxiety disorder, unspecified; F20.9 Schizophrenia, unspecified; F17.210 Nicotine dependence, cigarettes, uncomplicated; Z79.899 Other long term (current) drug therapy; Z79.4 Long term (current) use of insulin; Z79.84 Long term (current) use of oral hypoglycemic drugs
CPT/HCPCS: 71045; 80053; 82550; 83690; 83880; 84484; 85025; 93005; 96360

== ENCOUNTER 2019-03-01 02:47 | Observation (INO) | payer OTHER ==
[2019-03-01] MEDS ORDERED: Nitroglycerin 0.4 MG TAB 1 EACH ONE (07:09)
[2019-03-01] MEDS ORDERED: Ondansetron PF 4 MG/2 ML Vial IVP PRN ×2 (09:25→11:16)
[2019-03-01] MEDS ORDERED: Ondansetron ODT 4 MG TAB SL PRN (09:25)
[2019-03-01] MEDS ORDERED: Acetaminophen 325 MG TAB PO PRN ×2 (09:25→11:16)
[2019-03-01 09:54] VITALS: BMI 78.8
[2019-03-01 10:48] LABS: Troponin I Less than 0.010 ng/mL (< 0.028)
[2019-03-01] MEDS ORDERED: Zolpidem Tartrate 5 MG TAB PO PRN (11:16)
[2019-03-01] MEDS ORDERED: HumaLOG 300 UNITS/3 ML VIAL SC PRN ×2 (11:16)
[2019-03-01] MEDS ORDERED: Bisacodyl 5 MG TAB PO PRN (11:16)
[2019-03-01] MEDS ORDERED: Nitroglycerin 0.4 MG TAB (25 Tab Bottle) PO PRN (11:16)
[2019-03-01] MEDS ORDERED: Sodium Chloride 0.65% Nasal 44 ML BOT EA NARE PRN (11:16)
[2019-03-01] MEDS ORDERED: Senokot S 8.6-50 MG TAB PO PRN (11:16)
[2019-03-01] MEDS ORDERED: Diabetic Tussin 200 MG/10 ML UDCUP PO PRN (11:16)
[2019-03-01] MEDS ORDERED: Loperamide HCl 2 MG CAP PO PRN (11:16)
[2019-03-01] MEDS ORDERED: Dextrose 50% Abboject 50 ML SYRINGE SLOW IVP PRN (11:16)
[2019-03-01] MEDS ORDERED: Loratadine 10 MG TAB PO PRN (11:16)
[2019-03-01] MEDS ORDERED: Artificial Tears 18 DROP/0.9 ML EA EYE PRN (11:16)
[2019-03-01] MEDS ORDERED: Cepastat Lozenges 1 LOZ PO PRN (11:16)
[2019-03-01] MEDS ORDERED: Calcium Carbonate 500 MG ChewTAB PO PRN (11:16)
[2019-03-01] MEDS ORDERED: Ondansetron ODT 4 MG TAB PO PRN (11:16)
[2019-03-01] MEDS ORDERED: Dextrose 5% in Water 1,000 ML IV PRN (11:16)
[2019-03-01] MEDS ORDERED: hydrALAZINE 20 MG/ML VIAL SLOW IVP PRN (11:16)
[2019-03-01] MEDS ORDERED: Bisacodyl 10 MG SUPP PR PRN (11:16)
--- NOTE | 2019-03-01 11:50 | HP ---
PRIMARY CARE PHYSICIAN: KATHERINE Flores. REASON FOR ADMISSION: Chest pain. HISTORY OF PRESENT ILLNESS: A 28-year-old male, who has underlying morbid obesity, who initially went to emergency room for evaluation of chest pain. The patient came to ER yesterday evening around 9:00 p.m. with chest pain. He describes chest pain on the left side, worse with palpation as well as deep breathing. His chest pain is also little bit worse with movement of the chest. He has constant pain without any relief. He describes intensity of pain is about 4/10. He denies any associated nausea, vomiting, or diaphoresis. He denies any shortness of breath. He denies any dizziness or syncope. He denies any lower extremity edema or calf tenderness. This patient came back to emergency room again with similar ongoing chest pain. In the emergency room, he had a routine blood test including troponin, which were negative. He had routine blood tests yesterday which showed creatinine 1.92 and WBC 11.0 and hemoglobin 11.8. He has chronic low platelet count. The patient also has underlying noncompliance with his medication. He denies any constipation, diarrhea, melena, hematochezia, abdominal pain, or epigastric pain. He denies any urinary tract infection symptoms. REVIEW OF SYSTEMS: CONSTITUTIONAL: Negative for weight loss or gain, ability to conduct usual activities. SKIN: Negative for rash, itching. EYES: Negative for double vision, pain. ENT/MOUTH: Negative for nose bleeding, neck stiffness, pain, tenderness. CARDIOVASCULAR: Negative for palpitations, dyspnea on exertion, orthopnea. RESPIRATORY: Negative for shortness of breath, wheezing, cough, hemoptysis, fever or night sweats. GASTROINTESTINAL: Negative for poor appetite, abdominal pain, heartburn, nausea, vomiting, constipation, or diarrhea. GENITOURINARY: Negative for urgency, frequency, dysuria, nocturia. MUSCULOSKELETAL: Negative for pain, swelling. NEUROLOGIC/PSYCHIATRIC: Negative for anxiety, depression. ALLERGY/IMMUNOLOGIC: Negative for skin rash, bleeding tendency. epigastric pain. He denies any urinary tract infection symptoms. Please see my HPI for pertinent positives and negatives. All other review of systems reviewed and negative except as mentioned in HPI. PAST MEDICAL HISTORY: Morbid obesity, diabetes type 2, medication noncompliance, dyslipidemia, hypertension, hypothyroidism, and diabetic neuropathy. PAST SURGICAL HISTORY: Appendicectomy. PAST PSYCHIATRIC HISTORY: Bipolar disorder, schizophrenia, mild mental retardation. SOCIAL HISTORY: The patient denies any alcohol abuse. He denies any other illicit drug abuse. He uses tobacco products. He is also on Chantix for smoking cessation. He lives at home by himself. ALLERGIES: NO KNOWN DRUG ALLERGIES. FAMILY HISTORY: Positive for cardiac disease to his uncle and aunts. CURRENT HOME MEDICATIONS: 1. Amlodipine 10 mg daily. 2. Gabapentin 100 mg three times daily. 3. Humalog 50 units subcu three times daily. 4. Levothyroxine 125 mcg daily. 5. Metformin 1000 mg p.o. b.i.d. 6. Metoprolol 25 mg twice daily. 7. Lantus 40 units subcu daily. 8. Albuterol inhaler as needed. EMERGENCY ROOM COURSE: The patient is given IV fluid yesterday. PHYSICAL EXAMINATION: VITAL SIGNS: On arrival, blood pressure 162/96, pulse 83, respiratory rate 22, temperature 97.3, saturation 95% on room air. Weight 201.4 kg. GENERAL: The patient is currently alert and awake, no obvious acute distress. HEENT: Head; normocephalic, atraumatic. Eyes; pupils round, reactive to light. Extraocular muscle intact. ENT; oropharynx within normal limits. Moist mucous membranes. No oral lesion. No pharyngeal erythema, no exudate. NECK: Supple. No JVD. No thyromegaly. No carotid bruit. No jugular venous distention. LUNGS: Clear to auscultation without any rhonchi or rales. CARDIAC: S1, S2 regular. No murmur. No gallop. No rub. Mild chest wall tenderness noted. CARDIAC: S1, S2. Regular without any murmur. ABDOMEN: Morbid obesity limiting examination. Bowel sounds present. Nontender. Nondistended. No organomegaly. No mass. No suprapubic tenderness. BACK: Unremarkable. No CVA tenderness. EXTREMITIES: Upper extremities; passive movement of all joints is normal. Lower extremity, no edema. Good distal pulsation. SKIN: The patient does have an erythematous blanchable rash to bilateral axilla with numerous satellite lesion. PSYCHIATRIC: Normal affect. SIGNIFICANT LABORATORY DATA: EKG showing normal sinus rhythm, nonspecific ST-T changes. Chest x-ray based on my review, no acute cardiopulmonary process. CBC; WBC 11.0, hemoglobin 11.8, platelets 98. BMP; sodium 136, potassium 4.1, chloride 102, carbon dioxide 25, BUN 22, creatinine 1.92, glucose 104, calcium 9.5. LFT; AST 14, ALT 17, alkaline phosphatase 89, albumin 4.2, lipase 32. BNP 17.5. Troponin negative. ASSESSMENT/PLAN: 1. Chest pain. The patient's chest pain description is atypical, most likely musculoskeletal pain. Given his morbid obesity, we will just order D-dimer. If D-dimer is abnormal, then we will consider doing V/Q scan. This patient does not need any stress test. We will observe him 24 hours while in hospital. We will control his pain with pain medication and monitor on telemetry floor. 2. Diabetes, insulin requiring. The patient will resume his Humalog insulin as well as Lantus insulin while in the hospital as per his home dosage. 3. Hypertension. We will continue lisinopril and metoprolol as per home dosage. 4. Gastroesophageal reflux disease. We will continue Protonix 40 mg p.o. daily. 5. Diabetic neuropathy. We will continue gabapentin as per home dosage. 6. Hypothyroidism. We will continue Synthroid as per home dosage. 7. Morbid obesity. Dietary education given. Weight loss education given. 8. Chronic kidney disease stage 3. We will monitor renal function. 9. Deep venous thrombosis prophylaxis, Lovenox 30 mg subcu daily. 10. Gastrointestinal prophylaxis, Protonix 40 mg p.o. daily. CODE STATUS: The patient is full code. The patient does not have any surrogate decision maker. DISPOSITION PLAN: Based on clinical course, we will consider discharging him home tomorrow. Plan of care discussed with the patient in detail. Job ID: [id number]
[2019-03-01 13:55] LABS: Troponin I Less than 0.010 ng/mL (< 0.028)
[2019-03-01] MEDS: HYDROcodone/Acetaminophen 5/325 mg Tablet PO PRN ×2 (16:23→20:50)
[2019-03-01] MEDS: Nystatin Powder 15 GM BOT TOP SCH (20:45)
[2019-03-01] MEDS: Metoprolol Tartrate 25 MG TAB PO SCH (20:52)
[2019-03-02] MEDS: HYDROcodone/Acetaminophen 5/325 mg Tablet PO PRN (01:56)
[2019-03-02 05:57] LABS: #Basophils 0.1 thou/uL (0.0-0.2); #Eosinphils 0.2 thou/uL (0.0-0.7); #Lymphocytes 2.8 thou/uL (1.20-3.40); #Monocytes 0.8 thou/uL (0.11-0.59); #Neutrophils 5.5 thou/uL (1.40-6.50); %Basophils 0.7 % (0.0-1.0); %Eosinophils 2.2 % (0.0-10.0); %Lymphocytes 29.8 % (21.0-51.0); %Monocytes 8.4 % (0.0-10.0); %Neutrophils 58.9 % (42.0-75.0); Mean Corpuscular HGB CONC 33.3 g/dL (32.0-36.0); Mean Corpuscular Hemoglobin 29.9 pg (27.0-31.0); Mean Corpuscular Volume 89.8 fL (78.0-98.0); Mean Platelet Volume 12.1 fL (7.4-10.4); Platelet Count 94 thou/uL (130-400); RBC Distribution Width 13.9 % (11.5-14.5); Red Blood Cell (RBC) Count 4.02 mill/uL (4.70-6.10); White Blood Cell (WBC) Count 9.3 thou/uL (4.8-10.8)
[2019-03-02 06:12] LABS: ALT (SGPT) 17 U/L (8-55); AST (SGOT) 13 U/L (5-34); Albumin 4.1 g/dL (3.5-5.0); Alkaline Phosphatase 86 U/L (40-150); Anion Gap 14 mmol/L (10-20); BUN (Urea Nitrogen) 24 mg/dL (8.9-20.6); Bilirubin, Total 0.3 mg/dL (0.2-1.2); Calc. Creatinine Clearance 255 mL/min (70-130); Calcium 10.3 mg/dL (7.8-10.44); Carbon Dioxide 26 mmol/L (22-29); Cardiac Risk 3.7 (Less than 4.5); Chloride 101 mmol/L (98-107); Cholesterol 128 mg/dl (< 200 Desired); Estimated GFR-MDRD 71; Globulin 3.7 g/dL (2.4-3.5); Glucose 141 mg/dL (70-105); HDL Cholesterol 35 mg/dL (>60 Neg Risk); LDL Cholesterol, Calculated 61 mg/dL; Protein, Total 7.8 g/dL (6.0-8.3); Sodium 137 mmol/L (136-145); Triglycerides 160 mg/dL (Less than 150)
[2019-03-02] MEDS ORDERED: metFORMIN 500 MG TAB PO SCH (08:00)
[2019-03-02 08:16] VITALS: TEMP 97.8
[2019-03-02] MEDS ORDERED: Lisinopril 10 MG TAB PO SCH (09:00)
[2019-03-02] MEDS ORDERED: Gabapentin 100 MG CAP PO SCH (09:00)
[2019-03-02] MEDS ORDERED: Aspirin 325 mg Enteric Coated Tablet PO SCH (09:00)
[2019-03-02] MEDS ORDERED: Pregabalin 75 MG CAP PO SCH (09:00)
[2019-03-02] MEDS ORDERED: Amlodipine 10 MG TAB PO SCH (09:00)
[2019-03-02] MEDS: Metoprolol Tartrate 25 MG TAB PO SCH (09:36)
[2019-03-02] MEDS: HumaLOG 300 UNITS/3 ML VIAL SC SCH ×2 (09:37→12:40)
[2019-03-02] MEDS: Nystatin Powder 15 GM BOT TOP SCH (09:38)
--- NOTE | 2019-03-02 11:13 | DIS ---
DATE OF ADMISSION: 03/01/2019 DATE OF DISCHARGE: 03/02/2019 PRIMARY CARE PHYSICIAN: Tracy Kay PA-C DISCHARGE DISPOSITION: Home. PRIMARY DISCHARGE DIAGNOSIS: Chest pain due to musculoskeletal etiology. SECONDARY DISCHARGE DIAGNOSES: Chronic thrombocytopenia, morbid obesity with BMI of 80, hypertension, diabetic neuropathy, diabetic nephropathy, chronic kidney disease stage 3, and normocytic normochromic anemia. PRIMARY PROCEDURE/OPERATION: None. RADIOLOGICAL INVESTIGATION: Chest x-ray was normal. SIGNIFICANT LABORATORY DATA: WBC 9.3, hemoglobin 12.0, and platelet 94. D-dimer 0.33. Creatinine 1.22. LDL 61. Sodium 137. DISCHARGE MEDICATION: 1. Amlodipine 10 mg p.o. daily. 2. Gabapentin 100 mg p.o. t.i.d. 3. Humalog insulin 15 units subcu t.i.d. 4. Synthroid 125 mcg p.o. daily. 5. Lisinopril 10 mg daily. 6. Metformin 1000 mg p.o. b.i.d. 7. Metoprolol 25 mg p.o. b.i.d. 8. Omeprazole 20 mg p.o. daily. 9. Lyrica 75 mg p.o. b.i.d. 10. Zocor 20 mg p.o. at bedtime. CONTRAINDICATION: None. CODE STATUS: Full code. INPATIENT PRODUCTION GRAPHIC DESIGNER: None. ALLERGIES: NO KNOWN DRUG ALLERGIES. DISCHARGE PLAN: Posthospital, the patient will follow up with primary care physician in 1 or 2 weeks. HOSPITAL COURSE: This is a 28-year-old male with above-mentioned medical problem, who was admitted by me. Please see my HPI for further details. This patient presented to ongoing chest pain. He required 2 emergency room visits [id number] for his left-sided chest pain, which was related with movement and locally reproducible. Based on his history and examination, his pain was consistent with musculoskeletal etiology. Given his morbid obesity, we did D-dimer to rule out any thromboembolic disorder. His description was not consistent with thromboembolic disorder and his D-dimer is negative. In this way, we have completely excluded cardiac and thromboembolic disorder. During this admission, we had serial cardiac enzymes, that were negative. The patient's pain was controlled with pain medication. This morning, the patient is completely asymptomatic. I have seen and examined at bedside today. PHYSICAL EXAMINATION: VITAL SIGNS: Currently, temperature 97.5, pulse 74, respiratory rate 16, saturation 97% on room air, blood pressure 133/83, and weight 440 pounds. GENERAL: The patient is currently alert, awake, in no obvious acute distress. HEENT: Head, normocephalic and atraumatic. LUNGS: Clear to auscultation without any rhonchi or rales. CARDIAC: S1 and S2 regular. No murmur. No gallop. No rub. ABDOMEN: Soft, morbid obesity limiting examination. Bowel sounds present. NEUROLOGIC: Nonfocal examination. The patient is medically stable for discharge. All review of systems reviewed with him and negative. Job ID: [id number]
[2019-03-02 12:40] VITALS: BP 129/61
[2019-03-02] MEDS ORDERED: Atorvastatin Calcium 10 MG TAB PO SCH (21:00)
[2019-03-03] MEDS ORDERED: Levothyroxine Sodium 125 MCG TAB PO SCH (06:00)
== END 2019-03-02 14:16 | disposition home or self-care (01) ==
LOC: ERS 02:47 → 2SW 09:05
PROVIDERS: ADMIT Internal Medicine; ATTEND Internal Medicine
DX: R07.89 Other chest pain (principal); D69.6 Thrombocytopenia, unspecified; E66.01 Morbid (severe) obesity due to excess calories; I12.9 Hypertensive chronic kidney disease with stage 1 through stage 4 chronic kidney disease, or unspecified chronic kidney disease; E10.22 Type 1 diabetes mellitus with diabetic chronic kidney disease; N18.3 Chronic kidney disease, stage 3 (moderate); E10.40 Type 1 diabetes mellitus with diabetic neuropathy, unspecified; D64.9 Anemia, unspecified; E78.5 Hyperlipidemia, unspecified; K21.9 Gastro-esophageal reflux disease without esophagitis; E03.9 Hypothyroidism, unspecified; F20.9 Schizophrenia, unspecified; F79 Unspecified intellectual disabilities; F17.210 Nicotine dependence, cigarettes, uncomplicated; Z91.14 Patient's other noncompliance with medication regimen; Z68.45 Body mass index [BMI] 70 or greater, adult; Z79.899 Other long term (current) drug therapy; Z79.84 Long term (current) use of oral hypoglycemic drugs
CPT/HCPCS: 36415; 36416; 71045; 80053; 80061; 82550; 83690; 83880; 84484; 85025; 85379; 93005; 96360; G0378

== ENCOUNTER 2019-03-02 17:49 | Emergency (ER) | payer OTHER ==
[2019-03-02] MEDS ORDERED: Mag-Al 1200 mg/1200 mg/30 ML UDCUP ONE (18:32)
[2019-03-02] MEDS ORDERED: Lidocaine Viscous Sol 2% 15 ml UD Cup ONE (18:32)
== END 2019-03-02 19:00 | disposition home or self-care (01) ==
LOC: ERS 17:49
DX: R07.9 Chest pain, unspecified (principal); F41.9 Anxiety disorder, unspecified; F31.9 Bipolar disorder, unspecified; F20.9 Schizophrenia, unspecified; F17.210 Nicotine dependence, cigarettes, uncomplicated; Z79.899 Other long term (current) drug therapy; Z79.84 Long term (current) use of oral hypoglycemic drugs
CPT/HCPCS: 93005

== ENCOUNTER 2019-03-03 08:51 | Emergency (ER) | payer OTHER ==
[2019-03-03] MEDS ORDERED: Ondansetron PF 4 MG/2 ML Vial ONE (09:28)
--- NOTE | 2019-03-03 09:35 | RAD ---
EXAM: Chest PA and lateral: HISTORY: Pleuritic chest pain COMPARISON: 02/28/2019 FINDINGS: Poor inspiration. Exam is limited technically by very large body habitus. Heart size:Within normal limits. Lungs:Clear of acute process. No confluent pneumonia, overt edema, pleural effusion, or other acute process. IMPRESSION: No significant acute intrathoracic disease.
[2019-03-03 10:27] LABS: Hemoglobin 11.5 g/dL (14.0-18.0); Mean Corpuscular HGB CONC 33.4 g/dL (32.0-36.0); Mean Corpuscular Hemoglobin 29.7 pg (27.0-31.0); Mean Corpuscular Volume 88.9 fL (78.0-98.0); Mean Platelet Volume 11.8 fL (7.4-10.4); Platelet Count 98 thou/uL (130-400); RBC Distribution Width 13.7 % (11.5-14.5); Red Blood Cell (RBC) Count 3.88 mill/uL (4.70-6.10); White Blood Cell (WBC) Count 9.7 thou/uL (4.8-10.8)
[2019-03-03 10:51] LABS: Band 3 % (5-11); Eosinophils 1 % (0-10); Lymphocytes 23 % (21-51); MDiff Complete? YES; Monocytes 9 % (0-10); Neutrophil 64 % (42-75); Platelet Morphology Comment Appears Decreased; Polychromasia SLIGHT = 2-3 cells (100X) (0-2/hpf)
[2019-03-03 11:05] LABS: ALT (SGPT) 16 U/L (8-55); AST (SGOT) 12 U/L (5-34); Albumin 3.8 g/dL (3.5-5.0); Alkaline Phosphatase 94 U/L (40-150); Anion Gap 13 mmol/L (10-20); BUN (Urea Nitrogen) 22 mg/dL (8.9-20.6); Bilirubin, Total 0.2 mg/dL (0.2-1.2); Calc. Creatinine Clearance 0 mL/min (70-130); Calcium 9.2 mg/dL (7.8-10.44); Carbon Dioxide 25 mmol/L (22-29); Chloride 103 mmol/L (98-107); Estimated GFR-MDRD 78; Globulin 3.4 g/dL (2.4-3.5); Glucose 141 mg/dL (70-105); Potassium 4.4 mmol/L (3.5-5.1); Protein, Total 7.2 g/dL (6.0-8.3); Sodium 137 mmol/L (136-145)
== END 2019-03-03 12:01 | disposition home or self-care (01) ==
LOC: ERS 08:51
DX: R07.81 Pleurodynia (principal); L53.9 Erythematous condition, unspecified; B37.2 Candidiasis of skin and nail; I10 Essential (primary) hypertension; E11.9 Type 2 diabetes mellitus without complications; E78.5 Hyperlipidemia, unspecified; E66.9 Obesity, unspecified; F41.9 Anxiety disorder, unspecified; F31.9 Bipolar disorder, unspecified; F17.210 Nicotine dependence, cigarettes, uncomplicated; Z79.899 Other long term (current) drug therapy; Z79.4 Long term (current) use of insulin
CPT/HCPCS: 36415; 71046; 80053; 84484; 85025; 93005; 96374; J2405

== ENCOUNTER 2019-03-04 21:22 | Emergency (ER) | payer OTHER ==
[2019-03-04 22:09] LABS: #Basophils 0.1 thou/uL (0.0-0.2); #Eosinphils 0.2 thou/uL (0.0-0.7); #Lymphocytes 2.1 thou/uL (1.20-3.40); #Monocytes 0.8 thou/uL (0.11-0.59); #Neutrophils 6.8 thou/uL (1.40-6.50); %Basophils 0.8 % (0.0-1.0); %Eosinophils 1.9 % (0.0-10.0); %Monocytes 7.6 % (0.0-10.0); %Neutrophils 68.8 % (42.0-75.0); Mean Corpuscular HGB CONC 33.4 g/dL (32.0-36.0); Mean Corpuscular Hemoglobin 30.1 pg (27.0-31.0); Mean Corpuscular Volume 90.2 fL (78.0-98.0); Mean Platelet Volume 11.3 fL (7.4-10.4); Platelet Count 100 thou/uL (130-400); RBC Distribution Width 13.5 % (11.5-14.5); Red Blood Cell (RBC) Count 3.67 mill/uL (4.70-6.10); White Blood Cell (WBC) Count 9.9 thou/uL (4.8-10.8)
[2019-03-04 22:30] LABS: ALT (SGPT) 15 U/L (8-55); AST (SGOT) 8 U/L (5-34); Albumin 3.5 g/dL (3.5-5.0); Alcohol Less than 10 mg/dL (Less than 10); Alkaline Phosphatase 113 U/L (40-150); Anion Gap 12 mmol/L (10-20); BUN (Urea Nitrogen) 15 mg/dL (8.9-20.6); Bilirubin, Total 0.2 mg/dL (0.2-1.2); Calc. Creatinine Clearance 0 mL/min (70-130); Calcium 8.6 mg/dL (7.8-10.44); Carbon Dioxide 25 mmol/L (22-29); Chloride 103 mmol/L (98-107); Estimated GFR-MDRD 65; Globulin 3.2 g/dL (2.4-3.5); Glucose 366 mg/dL (70-105); Potassium 4.1 mmol/L (3.5-5.1); Protein, Total 6.7 g/dL (6.0-8.3); Sodium 136 mmol/L (136-145)
[2019-03-04 22:31] LABS: Acetaminophen Less than 6.0 mcg/mL (10.0-30.0); Alcohol Less than 10 mg/dL (Less than 10); CK (CPK) 75 U/L (30-200); Salicylate Less than 8.0 mg/dL (15.0-30.0)
[2019-03-04 23:22] LABS: Bilirubin Negative (Negative); Blood, Urine Negative (Negative); Clarity Clear (Clear); Glucose, Urine (Dipstick) Greater than 1000 mg/dL (Negative); Leukocyte Negative Leu/uL (Negative); Nitrite Negative (Negative); Protein, Urine (Dipstick) Negative (Neg-Trace); Urobilinogen Normal mg/dL (Less than 2)
[2019-03-04 23:32] LABS: Amphetamine Not Detected (NotDetected); Barbiturates Screen Not Detected (NotDetected); Benzodiazepine Screen Not Detected (NotDetected); Cocaine Metabolite Screen Not Detected (NotDetected); Medtox Control Line Valid? VALID (VALID); Medtox Reader # READER 4; Methadone Not Detected (NotDetected); Methamphetamine Not Detected (NotDetected); Opiate Screen Not Detected (NotDetected); Oxycodone Screen Not Detected (NotDetected); Phencyclidine (PCP) Not Detected (NotDetected); THC/Cannabinoid Screen Not Detected (NotDetected); Tricyclic Screen Not Detected (NotDetected)
[2019-03-05] MEDS ORDERED: Ketorolac Tromethamine 30 MG/ML VIAL ONE (00:58)
== END 2019-03-05 01:12 | disposition home or self-care (01) ==
LOC: ERS 21:22
DX: T38.3X2A Poisoning by insulin and oral hypoglycemic [antidiabetic] drugs, intentional self-harm, initial encounter (principal); L30.9 Dermatitis, unspecified; F43.0 Acute stress reaction; B37.9 Candidiasis, unspecified; E66.9 Obesity, unspecified; E11.9 Type 2 diabetes mellitus without complications; E10.9 Type 1 diabetes mellitus without complications; E78.5 Hyperlipidemia, unspecified; I10 Essential (primary) hypertension; F17.210 Nicotine dependence, cigarettes, uncomplicated; Z79.4 Long term (current) use of insulin; Z79.899 Other long term (current) drug therapy
CPT/HCPCS: 36415; 36416; 80053; 80306; 80307; 81003; 82550; 84443; 85025; 93005; 96374; J1885

== ENCOUNTER 2019-03-05 04:56 | Emergency (ER) | payer OTHER ==
[2019-03-05 05:26] LABS: #Basophils 0.1 thou/uL (0.0-0.2); #Eosinphils 0.2 thou/uL (0.0-0.7); #Lymphocytes 2.9 thou/uL (1.20-3.40); #Monocytes 0.8 thou/uL (0.11-0.59); #Neutrophils 6.8 thou/uL (1.40-6.50); %Basophils 0.7 % (0.0-1.0); %Eosinophils 2.2 % (0.0-10.0); %Lymphocytes 26.9 % (21.0-51.0); %Neutrophils 63.3 % (42.0-75.0); Hemoglobin 10.7 g/dL (14.0-18.0); Mean Corpuscular HGB CONC 33.5 g/dL (32.0-36.0); Mean Corpuscular Volume 89.5 fL (78.0-98.0); Mean Platelet Volume 11.9 fL (7.4-10.4); Platelet Count 102 thou/uL (130-400); RBC Distribution Width 13.6 % (11.5-14.5); Red Blood Cell (RBC) Count 3.59 mill/uL (4.70-6.10); White Blood Cell (WBC) Count 10.8 thou/uL (4.8-10.8)
[2019-03-05 05:45] LABS: ALT (SGPT) 15 U/L (8-55); AST (SGOT) 10 U/L (5-34); Albumin 3.5 g/dL (3.5-5.0); Alkaline Phosphatase 96 U/L (40-150); Anion Gap 12 mmol/L (10-20); BUN (Urea Nitrogen) 19 mg/dL (8.9-20.6); Bilirubin, Total 0.3 mg/dL (0.2-1.2); Calc. Creatinine Clearance 0 mL/min (70-130); Calcium 8.5 mg/dL (7.8-10.44); Carbon Dioxide 23 mmol/L (22-29); Chloride 103 mmol/L (98-107); Estimated GFR-MDRD 62; Globulin 3.2 g/dL (2.4-3.5); Glucose 297 mg/dL (70-105); Potassium 4.4 mmol/L (3.5-5.1); Protein, Total 6.7 g/dL (6.0-8.3); Sodium 134 mmol/L (136-145)
--- NOTE | 2019-03-05 08:30 | RAD ---
CHEST 1 VIEW: COMPARISON: 02/28/2019, 03/03/2019. HISTORY: Chest pain. FINDINGS: Normal cardiac silhouette. Pulmonary vessels and hilum are normal. Costophrenic angles are clear. No mass. No consolidation. No pneumothorax or osseous abnormalities. IMPRESSION: No acute cardiopulmonary process. POS: ANA
== END 2019-03-05 06:30 | disposition home or self-care (01) ==
LOC: ERS 04:56
DX: R07.89 Other chest pain (principal); E11.9 Type 2 diabetes mellitus without complications; E10.9 Type 1 diabetes mellitus without complications; E66.9 Obesity, unspecified; E78.5 Hyperlipidemia, unspecified; I10 Essential (primary) hypertension; F41.9 Anxiety disorder, unspecified; F31.9 Bipolar disorder, unspecified; F20.9 Schizophrenia, unspecified; F17.210 Nicotine dependence, cigarettes, uncomplicated; Z79.899 Other long term (current) drug therapy; Z79.4 Long term (current) use of insulin
CPT/HCPCS: 71045; 80053; 84484; 85025; 93005

== ENCOUNTER 2019-03-06 00:03 | Emergency (ER) | payer OTHER ==
[2019-03-06 00:49] LABS: #Basophils 0.1 thou/uL (0.0-0.2); #Eosinphils 0.2 thou/uL (0.0-0.7); #Lymphocytes 1.4 thou/uL (1.20-3.40); #Monocytes 0.6 thou/uL (0.11-0.59); #Neutrophils 6.3 thou/uL (1.40-6.50); %Basophils 0.9 % (0.0-1.0); %Eosinophils 2.3 % (0.0-10.0); %Lymphocytes 16.9 % (21.0-51.0); %Monocytes 6.5 % (0.0-10.0); %Neutrophils 73.4 % (42.0-75.0); Mean Corpuscular HGB CONC 33.8 g/dL (32.0-36.0); Mean Corpuscular Hemoglobin 30.2 pg (27.0-31.0); Mean Corpuscular Volume 89.2 fL (78.0-98.0); Mean Platelet Volume 11.4 fL (7.4-10.4); Platelet Count 85 thou/uL (130-400); RBC Distribution Width 13.6 % (11.5-14.5); Red Blood Cell (RBC) Count 3.64 mill/uL (4.70-6.10); White Blood Cell (WBC) Count 8.5 thou/uL (4.8-10.8)
[2019-03-06 01:11] LABS: ALT (SGPT) 13 U/L (8-55); AST (SGOT) 8 U/L (5-34); Albumin 3.4 g/dL (3.5-5.0); Alkaline Phosphatase 98 U/L (40-150); Anion Gap 11 mmol/L (10-20); BUN (Urea Nitrogen) 12 mg/dL (8.9-20.6); Bilirubin, Total 0.3 mg/dL (0.2-1.2); Calc. Creatinine Clearance 0 mL/min (70-130); Calcium 9.1 mg/dL (7.8-10.44); Carbon Dioxide 25 mmol/L (22-29); Chloride 103 mmol/L (98-107); Estimated GFR-MDRD 88; Globulin 3.2 g/dL (2.4-3.5); Glucose 262 mg/dL (70-105); Protein, Total 6.6 g/dL (6.0-8.3); Sodium 135 mmol/L (136-145)
[2019-03-06] MEDS ORDERED: Ibuprofen 200 MG TAB ONE (01:32)
--- NOTE | 2019-03-06 07:41 | RAD ---
RADIOGRAPH CHEST 1 VIEW: DATE: 03/06/2019 HISTORY: Dyspnea FINDINGS: There are no airspace densities, pulmonary edema, pneumothorax, or cardiomegaly. The lateral costophr enic angles are sharp. IMPRESSION: No acute cardiopulmonary findings.
== END 2019-03-06 01:38 ==
LOC: ERS 00:03
DX: R07.89 Other chest pain (principal); F41.9 Anxiety disorder, unspecified; F31.9 Bipolar disorder, unspecified; F20.9 Schizophrenia, unspecified; E78.5 Hyperlipidemia, unspecified; F17.210 Nicotine dependence, cigarettes, uncomplicated; E11.9 Type 2 diabetes mellitus without complications; I10 Essential (primary) hypertension; E66.9 Obesity, unspecified; Z79.899 Other long term (current) drug therapy; Z79.4 Long term (current) use of insulin; Z79.51 Long term (current) use of inhaled steroids
CPT/HCPCS: 36415; 71045; 80053; 84484; 85025; 93005

== ENCOUNTER 2019-03-28 20:02 | Emergency (ER) | payer OTHER ==
--- NOTE | 2019-03-28 20:50 | RAD ---
Chest one view HISTORY: Chest pain. COMPARISON: 03/06/2019. FINDINGS: Cardiac silhouette and pulmonary vasculature are unremarkable. Mediastinum is midline. A somewhat large oval ill-defined parenchymal type infiltrate projects over the right lower lobe. No evidence of pneumothorax. IMPRESSION: Right lower lobe parenchymal opacity possible infiltrate. Clinical correlation regarding other signs and symptoms of right lower lobe pneumonitis or other acute process is required. Please consider short-term radiographic follow-up with upright PA and lateral views of the chest when patien t can undergo that exam.
[2019-03-28 20:56] LABS: #Eosinphils 0.2 thou/uL (0.0-0.7); #Lymphocytes 2.3 thou/uL (1.20-3.40); #Monocytes 0.7 thou/uL (0.11-0.59); #Neutrophils 7.3 thou/uL (1.40-6.50); %Basophils 0.2 % (0.0-1.0); %Eosinophils 2.3 % (0.0-10.0); %Lymphocytes 21.5 % (21.0-51.0); %Monocytes 6.6 % (0.0-10.0); %Neutrophils 69.4 % (42.0-75.0); Hemoglobin 11.8 g/dL (14.0-18.0); Mean Corpuscular Hemoglobin 29.5 pg (27.0-31.0); Mean Corpuscular Volume 86.9 fL (78.0-98.0); Mean Platelet Volume 11.3 fL (7.4-10.4); Platelet Count 101 thou/uL (130-400); Red Blood Cell (RBC) Count 3.99 mill/uL (4.70-6.10); White Blood Cell (WBC) Count 10.5 thou/uL (4.8-10.8)
[2019-03-28 21:16] LABS: Anion Gap 14 mmol/L (10-20); BUN (Urea Nitrogen) 12 mg/dL (8.9-20.6); Calc. Creatinine Clearance 0 mL/min (70-130); Calcium 9.6 mg/dL (7.8-10.44); Carbon Dioxide 21 mmol/L (22-29); Chloride 104 mmol/L (98-107); Estimated GFR-MDRD 76; Glucose 146 mg/dL (70-105); Potassium 3.7 mmol/L (3.5-5.1); Sodium 135 mmol/L (136-145)
== END 2019-03-28 22:15 | disposition home or self-care (01) ==
LOC: ERS 20:02
DX: R07.89 Other chest pain (principal); L03.113 Cellulitis of right upper limb; R91.8 Other nonspecific abnormal finding of lung field; E66.9 Obesity, unspecified; E11.9 Type 2 diabetes mellitus without complications; E03.9 Hypothyroidism, unspecified; E78.5 Hyperlipidemia, unspecified; F41.9 Anxiety disorder, unspecified; F31.9 Bipolar disorder, unspecified; F20.9 Schizophrenia, unspecified; F17.210 Nicotine dependence, cigarettes, uncomplicated; Z79.899 Other long term (current) drug therapy; Z79.4 Long term (current) use of insulin
CPT/HCPCS: 71045; 80048; 83880; 84484; 85025; 93005

== ENCOUNTER 2019-03-30 20:22 | Emergency (ER) | payer OTHER ==
[2019-03-30] MEDS ORDERED: Aspirin Chewable 81 MG TAB ONE (20:43)
[2019-03-30] MEDS ORDERED: Metoclopramide HCl 10 MG/2 ML VIAL ONE (20:43)
[2019-03-30 21:04] LABS: #Basophils 0.1 thou/uL (0.0-0.2); #Eosinphils 0.2 thou/uL (0.0-0.7); #Lymphocytes 2.8 thou/uL (1.20-3.40); #Monocytes 0.6 thou/uL (0.11-0.59); #Neutrophils 6.5 thou/uL (1.40-6.50); %Basophils 0.8 % (0.0-1.0); %Eosinophils 2.2 % (0.0-10.0); %Monocytes 6.1 % (0.0-10.0); %Neutrophils 63.9 % (42.0-75.0); Hemoglobin 12.1 g/dL (14.0-18.0); Mean Corpuscular HGB CONC 33.7 g/dL (32.0-36.0); Mean Corpuscular Hemoglobin 29.6 pg (27.0-31.0); Mean Corpuscular Volume 87.9 fL (78.0-98.0); Mean Platelet Volume 11.4 fL (7.4-10.4); Platelet Count 107 thou/uL (130-400); RBC Distribution Width 13.9 % (11.5-14.5); White Blood Cell (WBC) Count 10.2 thou/uL (4.8-10.8)
--- NOTE | 2019-03-30 21:07 | RAD ---
Chest one view HISTORY: Chest pain. COMPARISON: 03/28/2019. FINDINGS: Cardiac silhouette is magnified by projection. Pulmonary vasculature are unremarkable. Medi astinum is midline. Subtle parenchymal opacity projecting over the superior segment right lower lobe is similar in appearance to the previous exam. No new abnormalities are demonstrated. IMPRESSION: Persistent subtle right lower lobe parenchymal opacity. Possible infiltrate. Clinical cor relation regarding other signs and symptoms of right lower lobe pneumonitis is required.
[2019-03-30 21:26] LABS: ALT (SGPT) 16 U/L (8-55); AST (SGOT) 12 U/L (5-34); Albumin 3.7 g/dL (3.5-5.0); Alkaline Phosphatase 82 U/L (40-150); Anion Gap 13 mmol/L (10-20); BUN (Urea Nitrogen) 18 mg/dL (8.9-20.6); Bilirubin, Total 0.4 mg/dL (0.2-1.2); CK (CPK) 67 U/L (30-200); Calc. Creatinine Clearance 0 mL/min (70-130); Calcium 9.4 mg/dL (7.8-10.44); Carbon Dioxide 24 mmol/L (22-29); Chloride 105 mmol/L (98-107); Estimated GFR-MDRD 73; Globulin 3.5 g/dL (2.4-3.5); Glucose 136 mg/dL (70-105); Lipase 26 U/L (8-78); Potassium 3.9 mmol/L (3.5-5.1); Protein, Total 7.2 g/dL (6.0-8.3); Sodium 138 mmol/L (136-145)
[2019-03-30 23:02] LABS: Troponin I Less than 0.010 ng/mL (< 0.028)
== END 2019-03-31 00:07 | disposition home or self-care (01) ==
LOC: ERS 20:22
DX: R07.9 Chest pain, unspecified (principal); E13.8 Other specified diabetes mellitus with unspecified complications; E03.9 Hypothyroidism, unspecified; I10 Essential (primary) hypertension; F17.210 Nicotine dependence, cigarettes, uncomplicated; E78.5 Hyperlipidemia, unspecified; E66.9 Obesity, unspecified; F20.9 Schizophrenia, unspecified; F41.9 Anxiety disorder, unspecified; F31.9 Bipolar disorder, unspecified; Z79.4 Long term (current) use of insulin; Z79.899 Other long term (current) drug therapy
CPT/HCPCS: 36415; 71045; 80053; 82550; 83690; 83880; 84484; 85025; 93005; 96365; J2765

== ENCOUNTER 2019-06-14 17:28 | Emergency (ER) | payer OTHER | END 2019-06-14 18:55 | disposition home or self-care (01) | LOC: ERS 17:28 | DX: M25.572 Pain in left ankle and joints of left foot (principal); E03.9 Hypothyroidism, unspecified; E78.5 Hyperlipidemia, unspecified; E66.9 Obesity, unspecified; E78.00 Pure hypercholesterolemia, unspecified; I10 Essential (primary) hypertension; E13.9 Other specified diabetes mellitus without complications; F31.9 Bipolar disorder, unspecified; F41.9 Anxiety disorder, unspecified; F17.210 Nicotine dependence, cigarettes, uncomplicated; F20.9 Schizophrenia, unspecified; Z79.4 Long term (current) use of insulin | CPT/HCPCS: 36415; 84484; 99281 ==

== ENCOUNTER 2019-07-03 22:37 | Emergency (ER) | payer OTHER | END 2019-07-03 23:06 | disposition home or self-care (01) | LOC: ERS 22:37 | DX: K92.1 Melena (principal); E13.9 Other specified diabetes mellitus without complications; E78.00 Pure hypercholesterolemia, unspecified; E78.5 Hyperlipidemia, unspecified; I10 Essential (primary) hypertension; E66.9 Obesity, unspecified; F41.9 Anxiety disorder, unspecified; F31.9 Bipolar disorder, unspecified; F20.9 Schizophrenia, unspecified; F17.210 Nicotine dependence, cigarettes, uncomplicated | CPT/HCPCS: 99281 ==

== ENCOUNTER 2020-10-25 17:37 | Emergency (ER) | payer OTHER | END 2020-10-25 19:13 | disposition left against medical advice (07) | LOC: ERS 17:37 | DX: Z53.21 Procedure and treatment not carried out due to patient leaving prior to being seen by health care provider (principal) ==

== ENCOUNTER 2020-11-01 01:38 | Emergency (ER) | payer OTHER | END 2020-11-01 03:03 | disposition left against medical advice (07) | LOC: ERS 01:38 | DX: Z53.21 Procedure and treatment not carried out due to patient leaving prior to being seen by health care provider (principal) ==

== ENCOUNTER 2020-11-17 18:26 | Emergency (ER) | payer OTHER ==
[2020-11-17] MEDS ORDERED: Acetaminophen 325 MG TAB ONE (20:07)
[2020-11-17] MEDS ORDERED: Activated Charcoal/Sorbitol 25 GM/120 ML TUBE ONE (20:07)
== END 2020-11-17 22:08 | disposition left against medical advice (07) ==
LOC: ERS 18:26
DX: R21 Rash and other nonspecific skin eruption (principal); I10 Essential (primary) hypertension; E66.9 Obesity, unspecified; E78.5 Hyperlipidemia, unspecified; E10.9 Type 1 diabetes mellitus without complications; E03.9 Hypothyroidism, unspecified; F17.210 Nicotine dependence, cigarettes, uncomplicated
CPT/HCPCS: 36416; 71045; 80053; 81003; 81015; 83690; 83880; 84439; 84443; 84484; 85025; 93005; J7620

== ENCOUNTER 2021-04-06 16:50 | Emergency (ER) | payer OTHER ==
[2021-04-06 18:06] LABS: #Basophils 0.1 thou/uL (0.0-0.2); #Eosinphils 0.2 thou/uL (0.0-0.7); #Lymphocytes 1.8 thou/uL (1.20-3.40); #Monocytes 0.7 thou/uL (0.11-0.59); #Neutrophils 5.2 thou/uL (1.40-6.50); %Basophils 0.7 % (0.0-1.0); %Eosinophils 2.8 % (0.0-10.0); %Lymphocytes 22.9 % (21.0-51.0); %Monocytes 8.3 % (0.0-10.0); %Neutrophils 65.4 % (42.0-75.0); Hemoglobin 11.4 g/dL (14.0-18.0); Mean Corpuscular Hemoglobin 29.8 pg (27.0-31.0); Mean Corpuscular Volume 87.7 fL (78.0-98.0); Mean Platelet Volume 9.4 fL (7.4-10.4); Platelet Count 105 thou/uL (130-400); RBC Distribution Width 12.9 % (11.5-14.5); Red Blood Cell (RBC) Count 3.83 mill/uL (4.70-6.10)
[2021-04-06 18:20] LABS: Bilirubin Negative (Negative); Blood, Urine Negative (Negative); Clarity Clear (Clear); Glucose, Urine (Dipstick) >=1000 mg/dL (Negative); Ketone, Urine Negative (Negative); Leukocyte Negative Leu/uL (Negative); Nitrite Negative (Negative); Protein, Urine (Dipstick) 10 mg/dL (Neg-Trace); Specific Gravity, Urine 1.023 (1.002-1.036); Urobilinogen Normal mg/dL (Less than 2); pH, Urine 5.5 (5.0-9.0)
[2021-04-06 18:21] LABS: ALT (SGPT) 20 U/L (8-55); AST (SGOT) 13 U/L (5-34); Albumin 3.4 g/dL (3.5-5.0); Alcohol Less than 10 mg/dL (Less than 10); Alkaline Phosphatase 133 U/L (40-110); Anion Gap 12 mmol/L (10-20); BUN (Urea Nitrogen) 15 mg/dL (8.9-20.6); Bilirubin, Total 0.2 mg/dL (0.2-1.2); Calc. Creatinine Clearance 0 mL/min (70-130); Calcium 8.7 mg/dL (7.8-10.44); Carbon Dioxide 23 mmol/L (22-29); Chloride 103 mmol/L (98-107); Globulin 3.6 g/dL (2.4-3.5); Glucose 269 mg/dL (70-105); Potassium 4.3 mmol/L (3.5-5.1); Sodium 134 mmol/L (136-145)
[2021-04-06 18:22] LABS: Acetaminophen Less than 6.0 mcg/mL (10.0-30.0); Alcohol Less than 10 mg/dL (Less than 10); CK (CPK) 45 U/L (30-200); Salicylate Less than 8.0 mg/dL (15.0-30.0)
[2021-04-06 18:28] LABS: Amphetamine Not Detected (NotDetected); Barbiturates Screen Detected (NotDetected); Benzodiazepine Screen Detected (NotDetected); Cocaine Metabolite Screen Not Detected (NotDetected); Methadone Not Detected (NotDetected); Methamphetamine Not Detected (NotDetected); Opiate Screen Not Detected (NotDetected); Oxycodone Screen Not Detected (NotDetected); Phencyclidine (PCP) Not Detected (NotDetected); THC/Cannabinoid Screen Not Detected (NotDetected); Tricyclic Screen Detected (NotDetected)
== END 2021-04-06 20:39 ==
LOC: ERS 16:50
DX: T42.4X2A Poisoning by benzodiazepines, intentional self-harm, initial encounter (principal); E11.9 Type 2 diabetes mellitus without complications; E03.9 Hypothyroidism, unspecified; I10 Essential (primary) hypertension; E66.9 Obesity, unspecified; F17.210 Nicotine dependence, cigarettes, uncomplicated; E78.5 Hyperlipidemia, unspecified
CPT/HCPCS: 36415; 80053; 80306; 80307; 81003; 82550; 84443; 85025; 93005

== ENCOUNTER 2023-10-25 00:19 | Emergency (ER) | payer OTHER ==
[2023-10-25 01:34] LABS: SARS-CoV-2 NAA Rapid Test Not Detected (NotDetected)
[2023-10-25] MEDS ORDERED: predniSONE 20 MG TAB ONE (02:52)
[2023-10-25] MEDS ORDERED: Ipratropium/Albuterol 3 ML NEB ONE (02:56)
== END 2023-10-25 04:05 | disposition home or self-care (01) ==
LOC: ERS 00:19
DX: J10.1 Influenza due to other identified influenza virus with other respiratory manifestations (principal); J18.9 Pneumonia, unspecified organism; E11.9 Type 2 diabetes mellitus without complications; E03.9 Hypothyroidism, unspecified; E78.5 Hyperlipidemia, unspecified; I10 Essential (primary) hypertension; F17.210 Nicotine dependence, cigarettes, uncomplicated; K76.0 Fatty (change of) liver, not elsewhere classified; Z55.6 Problems related to health literacy; Z75.3 Unavailability and inaccessibility of health-care facilities; Z79.4 Long term (current) use of insulin
CPT/HCPCS: 71045; 94640; J7512; J7620